=== PATIENT | female | born 1970 | race Caucasian/White ===

== ENCOUNTER 2017-06-17 00:27 | Emergency (ER) | payer OTHER ==
[~2017-06-17] VITALS: Ht 160 cm; Wt 81.4 kg
[~2017-06-17 00:27] MED LIST: ALBUTEROL; ASPIR-TRIN325 M1 PO; ELAVIL25 MG PO; MEDROL DOSEPAK4 MG PO; RIZATRIPTAN10 MG PO; TOPAMAX100 MG PO
[2017-06-17 00:55] LABS: HEMATOCRIT 40.9 % (36.0-46.0); HEMOGLOBIN 13.6 G/DL (11.9-15.5); MCH 29.1 PG (29.0-34.0); MCHC 33.3 G/DL (30.0-36.0); MCV 87.4 FL (83-99); PLATELET COUNT 292 K/uL (156-360); RBC DIS.WIDTH-SD 38.7 % (39-53); RED BLOOD COUNT 4.68 M/uL (3.80-5.20); WHITE BLOOD COUNT 12.8 K/uL (4.1-10.2)
[2017-06-17 01:03] LABS: PTT 27.2 SEC (25-37)
[2017-06-17 01:04] LABS: ALBUMIN 4.3 g/dL (3.2-4.8); CHLORIDE 109 mEq/L (99-109); POTASSIUM 4.1 mEq/L (3.7-5.4); SODIUM 144 mEq/L (136-147)
[2017-06-17 01:06] LABS: GLUCOSE 144 mg/dL (70-99); TOTAL PROTEIN 6.5 g/dL (6.4-8.3)
[2017-06-17 01:08] LABS: TOTAL BILIRUBIN 0.2 mg/dL (0.0-1.0)
[2017-06-17 01:10] LABS: ALKALINE PHOSPHATASE 66 IU/L (3-129); CREATININE 0.9 mg/dL (0.6-1.3); GFR ESTIMATE (CALCULATED) > 59 mL/min/
[2017-06-17 01:11] LABS: UREA NITROGEN (BUN) 21 mg/dL (9-23)
[2017-06-17 01:12] LABS: AST (GOT) 14 IU/L (2-34)
[2017-06-17 01:13] LABS: ALT (GPT) 10 IU/L (3-49)
[2017-06-17 03:19] VITALS: BP 141/70
== END 2017-06-17 03:19 | disposition short-term general hospital (02) ==
LOC: EME → EDBD 00:27 → EME 03:19
PROVIDERS: Emergency Medicine
DX: I60.9 Nontraumatic subarachnoid hemorrhage, unspecified (principal)
CPT/HCPCS: 70450; 80053; 85027; 85610; 85730; 99281; 99285; J2405; J2765